=== PATIENT | female | born 1950 | race Caucasian/White ===

== ENCOUNTER 2018-05-12 06:33 | Day surgery (SDC) | payer OTHER, MEDICARE ==
[2018-05-12] MEDS ORDERED: ceFAZolin 2 GM/DEXTROSE 100 ML IV ONE (06:54)
[2018-05-12] MEDS ORDERED: LR 1,000 ML IV ONE (06:55)
[2018-05-12] MEDS ORDERED: THROMBIN (BOVINE) 20,000 UNIT SPRAY TP ONE (07:13)
[2018-05-12] MEDS ORDERED: THROMBIN (BOVINE) 5,000 UNIT VIAL TP ONE (07:14)
[2018-05-12] MEDS ORDERED: BUPIVACAINE 0.5% 30 ML SDV ONE (07:14)
[2018-05-12] MEDS ORDERED: PAPAVERINE HCL 60 MG/2 ML SDV ONE (07:14)
[2018-05-12] MEDS ORDERED: PROTAMINE SULFATE 50 MG/5 ML VIAL IVP ONE (07:14)
--- NOTE | 2018-05-12 07:29 | PDHPUP ---
History & Physical Update H&P update statement: This history and physical update is based on an assessment of the patient which was completed after admission or registration (within 24 hours), but prior to the surgery/procedure. H&P update: H&P reviewed & patient examined, no change in patient's condition since H&P completed
[2018-05-12] MEDS ORDERED: MIDAZOLAM 2 MG/2 ML VIAL IVP ONE (07:38)
--- NOTE | 2018-05-12 07:38 | PDANEPAE ---
ANE History of Present Illness L AV fistula ANE Past Medical History - Cardiovascular History Hx Hypertension: Yes Hx Arrhythmias: Yes Hx Chest Pain: No Hx Coronary Artery / Peripheral Vascular Disease: No Hx CHF / Valvular Disease: No Hx Palpitations: No Cardiovascular History Comment: states has a 'flutter' - Pulmonary History Hx COPD: Yes Hx Asthma/Reactive Airway Disease: Yes Hx Recent Upper Respiratory Infection: No Hx Oxygen in Use at Home: Yes O2 in Use at Home (L/minute): 2L/m with Cpap Hx Sleep Apnea: No Sleep Apnea Screening Result - Last Documented: Positive Pulmonary History Comment: asthma. allergies. chronic bronchitis. ALVAREZ +, Cpap w/O2 - Neurologic History Hx Cerebrovascular Accident: No Hx Seizures: No Hx Dementia: No - Endocrine History Hx Diabetes: Yes Endocrine History Comment: hypothroid - Renal History Hx Renal Disorders: Yes Renal History Comment: stage 4 renal failure - Liver History Hx Hepatic Disorders: No - Neurological & Psychiatric Hx Hx Neurological and Psychiatric Disorders: Yes Neurological / Psychiatric History Comment: depression. anxiety - Cancer History Hx Cancer: No - Congenital Disorder History Hx Congenital Disorders: No - GI History Hx Gastrointestinal Disorders: Yes Gastrointestinal History Comment: GERD. hiatal hernia. partial colon removal on left for ruptured diverticulitis and abcess - Other Health History Other Health History: osteoarthritis. chronic back pain. states bad allergies , chronic rhinitis. wears glasses. upper and lower dentures - Chronic Pain History Chronic Pain: Yes (back) - Surgical History Prior Surgeries: tubal ligation. cholecystectomy. hernia repair. left ankle fx repair. left knee scope. right hand, ganglion cyst removal. bilat carpel tunnel. left shoulder rotator cuff repair. bilat hip replacements. bilat knee replacements. bialt cataract removal. partial removal of colon ANE Review of Systems Review of Systems: SOB due to chronic bronchitis - Exercise capacity METS (RN): 3 METS ANE Patient History - Allergies Allergies/Adverse Reactions: adhesive tape Allergy (Verified 05/11/18 13:22) Rash azithromycin Allergy (Verified 05/11/18 13:22) states med does not work for her so does not ever want bupropion Allergy (Verified 05/11/18 13:22) nausea duloxetine Allergy (Verified 05/11/18 13:22) nausea hydrocodone [From [facility]] Allergy (Verified 05/11/18 13:22) nausea latex Allergy (Verified 05/11/18 13:22) Rash meloxicam Allergy (Verified 05/11/18 13:22) nausea nabumetone Allergy (Verified 05/11/18 13:22) Itching nitrofurantoin Allergy (Verified 05/11/18 13:22) Itching oxaprozin [From Daypro] Allergy (Verified 05/11/18 13:22) nausea - Home Medications Home medications: home medication list seen and reviewed Home Medications: Acidophilus Probiotic Capsule 05/11/18 [Last Taken 05/11/18] Adult One Daily Multivit Tab 05/11/18 [Last Taken 05/11/18] Aspirin 325 mg (*) 05/11/18 [Last Taken 05/10/18] Breo Ellipta 100-25 Mcg INH PRN 05/11/18 [Last Taken Unknown] Calcium 600 + Vit D 400 Softgl 05/11/18 [Last Taken 05/11/18] Desvenlafaxine 05/11/18 [Last Taken 05/12/18] Fluticasone Propionate 05/11/18 [Last Taken Unknown] Glipizide 05/11/18 [Last Taken 05/11/18] Hydrochlorothiazide 05/11/18 [Last Taken 05/11/18] Januvia 25 MG (*) 05/11/18 [Last Taken 05/12/18] Levothyroxine 05/11/18 [Last Taken 05/12/18] Loratadine 05/11/18 [Last Taken 05/11/18] Losartan-Hctz 100-25 mg Tab 05/11/18 [Last Taken Unknown] Montelukast Sodium 05/11/18 [Last Taken Unknown] Ocuvite Adult 50 Plus Softgel 05/11/18 [Last Taken 05/11/18] Omeprazole 05/11/18 [Last Taken 05/12/18] Pravastatin Sodium 05/11/18 [Last Taken 05/11/18] Proair Hfa PRN 05/11/18 [Last Taken Unknown] Sodium Bicarbonate 05/11/18 [Last Taken 05/11/18] Verapamil 05/11/18 [Last Taken 05/11/18] Vitamin B-12 05/11/18 [Last Taken 05/11/18] Vitamin D3 2000 units tab (OTC) 05/11/18 [Last Taken 05/11/18] Furosemide 05/12/18 [Last Taken Unknown] Verapamil 80 mg 05/12/18 [Last Taken 05/12/18] - NPO status NPO Since - Liquids (Date): 05/12/18 NPO Since - Liquids (Time): 04:55 NPO Since - Solids (Date): 05/12/18 NPO Since - Solids (Time): 20:00 - Smoking Hx Smoking Status: Former smoker - Family Anes Hx Family Hx Anesthesia Complications: none ANE Labs/Vital Signs - Labs Result Diagrams: 05/12/18 07:35 - Vital Signs Vital Signs: reviewed preoperatively; see RN documention for details Blood Pressure: 148/83 Heart Rate: 75 Respiratory Rate: 18 O2 Sat (%): 94 Height: 156.85 cm Weight: 105.233 kg ANE Physical Exam - Airway Neck exam: FROM Mallampati Score: Class 3 Mouth exam: dentures - Pulmonary Pulmonary: reduced air movement - Cardiovascular Cardiovascular: regular rate and rhythym - ASA Status ASA Status: III ANE Anesthesia Plan Anesthesia Plan: GA w LMA
[2018-05-12] MEDS ORDERED: ONDANSETRON 4 MG/2 ML VIAL ONE (08:21)
[2018-05-12] MEDS ORDERED: DEXAMETHASONE 4 MG/ML VIAL ONE (08:21)
[2018-05-12] MEDS ORDERED: fentaNYL 100 MCG/2 ML INJ ONE (08:21)
[2018-05-12] MEDS ORDERED: LIDOCAINE 2% 100 MG/5 ML SYR ONE (08:21)
[2018-05-12] MEDS ORDERED: PROPOFOL 200 MG/20 ML VIAL ONE (08:22)
[2018-05-12] MEDS ORDERED: HEPARIN 10,000 UNIT/10 ML MDV (1,000 UNIT/ML) ONE (09:33)
--- NOTE | 2018-05-12 10:16 | POSTOPPROG ---
Post Op Note Date of Operation: 05/12/18 Surgeon: Rey Zuluaga Cnc Router Operator: Lissett Campbell Anesthesiologist: Mj Cloud Anesthesia: GET(General Endotracheal) Pre-op Diagnosis: CRF Post-op Diagnosis: same Procedure: LUE radiocephalic AVF Findings: good thrill. vein c spasm but dilated well Inf/Abcess present in the surg proc area at time of surgery?: No EBL: Minimal Complications: none Specimen(s): none
[2018-05-12] MEDS ORDERED: LABETALOL HCL 5 MG/ML 20 ML MDV IVP PRN (10:36)
[2018-05-12] MEDS ORDERED: NALOXONE HCL 0.4 MG/ML INJ IVP PRN (10:36)
[2018-05-12] MEDS ORDERED: DEXAMETHASONE 4 MG/ML VIAL IVP PRN (10:36)
[2018-05-12] MEDS ORDERED: oxyCODONE IR 5 MG TAB PO PRN (10:36)
[2018-05-12] MEDS ORDERED: ACETAMINOPHEN 500 MG TAB PO PRN (10:36)
[2018-05-12] MEDS ORDERED: ONDANSETRON 4 MG/2 ML VIAL IVP PRN (10:36)
[2018-05-12] MEDS ORDERED: PROMETHAZINE HCL 25 MG/ML INJ IVP PRN (10:36)
[2018-05-12] MEDS ORDERED: MEPERIDINE 25 MG/0.5 ML AMP IVP PRN (10:36)
[2018-05-12] MEDS ORDERED: fentaNYL 100 MCG/2 ML INJ IVP PRN (10:36)
[2018-05-12] MEDS ORDERED: HYDROmorphONE/DILAUDID 2 MG/ML INJ IVP PRN (10:36)
--- NOTE | 2018-05-12 10:39 | POSTANESTH ---
Post Anesthetic Evaluation Cardiovascular Status: Similar to Pre-Op Cond Respiratory Status: Similar to Pre-op Cond. Level of Consciousness/Mental Status: Can Participate in Eval, Mildly Sleepy, Arousable Pain Control: Adequate, Prn Tx Ordered Nausea/Vomiting Control: Adequate, Prn Tx Ordered Complications Possibly Related to Anesthesia: None Noted
--- NOTE | 2018-05-12 11:39 | GOP ---
DATE OF OPERATION: 05/12/2018 SURGEON: Rey Zuluaga MD ERADICATOR: Lissett Campbell, KOJO. ANESTHESIOLOGIST: Mj Cloud MD. PREOPERATIVE DIAGNOSIS: Chronic renal failure. POSTOPERATIVE DIAGNOSIS: Chronic renal failure. PROCEDURE PERFORMED: 1. Ultrasound vein mapping of left arm. 2. Left radiocephalic arteriovenous fistula. FINDINGS: The patient was found with an adequate radius artery and a small cephalic vein at the is t. Cephalic vein in the upper arm, however, was quite torturous and diving quite deeply. It was tal cted to proceed with a radiocephalic AV fistula. DESCRIPTION OF PROCEDURE: The patient was taken to the operating room where she received satisfactor y general endotracheal anesthesia by Dr. Cloud. She was placed in supine position with the left a rm outstretched on an arm board, prepped and draped in the usual sterile fashion. Using ultrasound, the veins of the arm were mapped as noted above. An incision was then made over the radial artery pr oximal to the wrist. Dissection was carried down through the subcutaneous tissue and through the sup erficial fascia. The radial artery was dissected free and controlled with vessel loops. Dissection was made under the radial flap. The cephalic vein was identified; however, it seemed quite small. I t was unclear if that was the actual cephalic vein we had seen with the ultrasound. A counter incisi on was made over the cephalic vein more laterally. The vein was dissected free and traced back to th e other incision, and indeed it was the same vein we were working on. Multiple branches were ligated and divided to allow mobility of the vein. It was then divided distally, ligated with Hemoclips, an d rotated over to the radial artery. The patient was systemically heparinized, and after adequate ci rculation time the arteries were occluded with vessel loops. An end-to-side AV fistula was created w ith the cephalic vein to the radial artery. This was done with a running 6-0 Prolene suture creating an 8 mm anastomosis. Flow was first established through the AV fistula and then back down the hand, with a good thrill in the fistula and good flow, and preservation a good flow to the hand. Hemostas is was assured. The wound was infiltrated with 0.5% Marcaine. Papaverine was used on the vessel for spasm. The wounds were closed with 4-0 Monocryl subcuticular sutures and Dermabond. She tolerated the procedure well. She was taken to the recovery room in good condition. /[id number]/MODL
[2018-05-12 12:40] VITALS: BP 113/77
== END 2018-05-12 12:21 | disposition home or self-care (01) ==
LOC: FSGY 06:33
PROVIDERS: ATTEND Surgery
PROC: 031C0ZF Bypass Left Radial Artery to Lower Arm Vein, Open Approach (ICD-10-PCS; principal; 2018-05-12 08:00)
DX: E11.22 Type 2 diabetes mellitus with diabetic chronic kidney disease (principal); N18.4 Chronic kidney disease, stage 4 (severe); Z79.84 Long term (current) use of oral hypoglycemic drugs; E87.5 Hyperkalemia; K21.9 Gastro-esophageal reflux disease without esophagitis
CPT/HCPCS: J0690; J1100; J1644; J2001; J2250; J2405; J2440; J2704; J2720; J3010